=== PATIENT | female | born 1985 | race African-American/Black ===

== ENCOUNTER 2024-05-21 03:10 | Emergency (ER) | payer OTHER, BC ==
[~2024-05-21] VITALS: Ht 162.6 cm; Wt 67.6 kg
[2024-05-21] MEDS ORDERED: HYDROCODONE/APAP 5/325MG TABLET ONE (03:39)
[2024-05-21] MEDS: HYDROCODONE/APAP 5/325MG TABLET PO ONE (03:40)
[2024-05-21] MEDS ORDERED: PROPOFOL 20 ML IV ONE (04:00)
[2024-05-21] MEDS: IV NS 0.9% 1,000 ML BAG IV ONE (04:11)
[2024-05-21] MEDS: PROPOFOL 200 MG/20 ML VIAL IV ONE (04:55)
[2024-05-21] MEDS ORDERED: MORPHINE SULFATE INJ 4 MG/ML DISP.SYRIN ONE (04:56)
[2024-05-21] MEDS ORDERED: HYDR-3972 PO (04:57)
[2024-05-21] MEDS: MORPHINE SULFATE INJ 2 MG/ML DISP.SYRIN IV ONE (04:57)
[2024-05-21 05:26] VITALS: BP 122/76; TEMP 98.3; O2SAT 99
== END 2024-05-21 06:08 | disposition home or self-care (01) ==
LOC: ER 03:18
DX: S93.121A Dislocation of metatarsophalangeal joint of right great toe, initial encounter (principal); M79.671 Pain in right foot; R07.89 Other chest pain; R94.31 Abnormal electrocardiogram [ECG] [EKG]; Z60.2 Problems related to living alone; V43.52XA Car driver injured in collision with other type car in traffic accident, initial encounter; Y93.89 Activity, other specified; Y92.488 Other paved roadways as the place of occurrence of the external cause; Y99.8 Other external cause status
CPT/HCPCS: 99285; 28475; 96374; 71045; 96361; 99152; 73630 ×2; 93005; J2704; J2270; G0500